=== PATIENT | female | born 1935 | race Caucasian/White ===

== ENCOUNTER 2019-11-11 20:22 | Inpatient (IN) | payer MEDICARE, OTHER ==
[2019-11-11] VITALS: BP 108/71
[~2019-11-11] VITALS: Ht 152.4 cm; Wt 52.7 kg
[2019-11-11 20:00] VITALS: BP 113/75
[2019-11-11] MEDS ORDERED: IV NORMAL SALINE 500 ML BAG IV ONE (20:30)
--- NOTE | 2019-11-11 20:40 | NUR ---
Patient BIB RA[facility]. c/o gen weakness and blood in urine x2-3 days. Patient able to speak in some complete sentences in Senegalese. Able to move x4 extremities. Device noted on LUE. no redness / swelling noted around the site. Breathing even and unlabored. no cough or SOB noted. Patient able to respond to name and painful stimuli.
[2019-11-11 21:07] LABS: CREATININE 0.8 mg/dL (0.6-1.3); POTASSIUM 3.5 mmol/L (3.5-5.1)
[2019-11-11 21:08] LABS: BASOPHILS # (AUTO) 0.1 K/uL (0.0-8.0); WHITE BLOOD COUNT (AUTO) 8.8 K/uL (3.8-11.8)
[2019-11-11 21:09] LABS: BASOPHILS % (AUTO) 0.8 % (0.0-2.0); EOSINOPHILS % (AUTO) 0.2 % (0.0-7.0); LYMPHOCYTES % (AUTO) 22.5 % (20.5-51.5); MEAN CORPUSCULAR HGB CONC 31 g/dL (32.3-35.6); MEAN CORPUSCULAR VOLUME 68.4 fL (75.5-95.3); MONOCYTES % (AUTO) 11.4 % (0.0-11.0); NEUTROPHILS # (AUTO) 5.7 K/uL (1.8-8.9); NEUTROPHILS % (AUTO) 65.1 % (38.5-71.5); PLATELET COUNT (AUTO) 377 K/uL (179-408); RED BLOOD CELL COUNT(AUTO) 2.52 MIL/uL (3.63-4.92)
[2019-11-11 21:11] LABS: HEMOGLOBIN 5.3 g/dL (10.9-14.3)
[2019-11-11 21:12] LABS: HEMATOCRIT 17.3 % (31.2-41.9)
[2019-11-11 21:13] LABS: BILIRUBIN,DIRECT 0.1 mg/dL (0.0-0.2); BILIRUBIN,TOTAL 0.3 mg/dL (0.2-1.0)
--- NOTE | 2019-11-11 21:26 | NUR ---
Unable to obtain medication list taking at home at this time due to patient's condition. Patient son Josh will bring meds list sometime huma.
--- NOTE | 2019-11-11 21:36 | NUR ---
Yanci reyes in ED - 11/11/19 at 2145 by RICHIE Unable to obtain medication list taking at home at this time due to patient's condition. Patient quentin Moreno .
--- NOTE | 2019-11-11 21:40 | NUR ---
Dr Nuñez spoke with Dr Kaufman consulting psychiatrist for [facility] for admission.
[2019-11-11 21:54] LABS: BAND % (MANUAL) 1 % (0-10); LYMPHOCYTES % (MANUAL) 18 % (20-40); MONOCYTES % (MANUAL) 12 % (2-10); NEUTROPHILS % (MANUAL) 69 % (42-75)
[2019-11-11 22:01] LABS: *BILIRUBIN,URIN NEGATIVE (NEGATIVE); *BLOOD, URINE NEGATIVE (NEGATIVE); *CLARITY,URINE SLIGHTLY CLOUDY (CLEAR); *KETONES,URINE NEGATIVE (NEGATIVE); LEUKOCYTE ESTERASE ,URINE TRACE (NEGATIVE); NITRITE, URINE NEGATIVE (NEGATIVE); PH,URINE 5.5 (5.0-8.0); UGLUCOSE NEGATIVE (NEGATIVE)
[2019-11-11 22:13] LABS: *COLOR,URINE DARK YELLOW (YELLOW)
[2019-11-11 22:16] LABS: BACTERIA,URINE MANY /HPF (NONE SEEN); MUCUS,URINE MANY /LPF (0-FEW); SQUAMOUS EPITHELIAL CELL,UR MODERATE /HPF (NONE SEEN)
--- NOTE | 2019-11-11 22:38 | NUR ---
Patient's son(Josh) came with medication list. Placed list in [employer].
--- NOTE | 2019-11-11 22:40 | NUR ---
Josh Muir (SON) at bedside stating he is the DPOA, requested copy of documents. Per son, will bring a copy in the am
[2019-11-11] MEDS ORDERED: ASCO500C18 PO (22:45)
[2019-11-11] MEDS ORDERED: ZINC1CAP2 PO (22:45)
[2019-11-11] MEDS ORDERED: AMIT10TA6 PO (22:45)
[2019-11-11] MEDS ORDERED: METF-442 PO (22:45)
[2019-11-11] MEDS ORDERED: CHOL-9 PO (22:45)
[2019-11-11] MEDS ORDERED: MECL-159 PO (22:45)
[2019-11-11] MEDS ORDERED: FERR324T PO (22:45)
[2019-11-11] MEDS ORDERED: SERT100T PO (22:45)
[2019-11-11] MEDS ORDERED: TRAM50TA2 PO (22:45)
[2019-11-11] MEDS ORDERED: OMEP20CA15 PO (22:45)
[2019-11-11] MEDS ORDERED: MELA5TAB PO (22:45)
[2019-11-11] MEDS ORDERED: METO-357 PO (22:45)
[2019-11-11] MEDS ORDERED: TRAMADOL HCL 50 MG TABLET PO PRN (23:00)
[2019-11-11] MEDS ORDERED: hydrALAZINE HCL 25 MG TABLET PO PRN (23:00)
[2019-11-11] MEDS ORDERED: MORPHINE SULFATE 2 MG/1 ML DISP.SYRIN IV PRN (23:00)
[2019-11-11] MEDS ORDERED: MAGNESIUM HYDROXIDE 30 ML LIQUID UDC PO PRN (23:00)
[2019-11-11] MEDS ORDERED: ONDANSETRON 4 MG/2 ML VIAL IV PRN (23:00)
[2019-11-11] MEDS ORDERED: ALBUTEROL SULFATE 2.5 MG/3 ML NEBU NEB PRN (23:00)
[2019-11-11] MEDS ORDERED: ACETAMINOPHEN 325 MG TABLET PO PRN (23:00)
[2019-11-11 23:08] LABS: IRON, SERUM 5 ug/dL (50-175)
[2019-11-11 23:30] VITALS: BP 111/51
[2019-11-11] MEDS ORDERED: TEMAZEPAM 7.5 MG CAPSULE PO PRN (23:45)
[2019-11-11] MEDS: CHOLECALCIFEROL 1,000 UNIT TABLET PO SCH (23:45)
--- NOTE | 2019-11-11 23:45 | NUR ---
Received pt awake, alert to self only. Pt on RA with O2 sats up to 94%. Tele placed and noted to be SR with HR 70s. Pt denies pain, dizziness or discomfort. Pt turned and repositioned. Full assessment completed. VSS, afebrile. Call light within reach. Safety precautions implemented. Will continue to monitor.
[2019-11-12] VITALS (17 sets, daily range): BP systolic 96–129; BP diastolic 41–75
[2019-11-12] MEDS ORDERED: DEXTROSE 50% 50 ML DISP.SYRIN IV PRN (01:15)
[2019-11-12] MEDS: MELATONIN 3 MG TABLET PO SCH ×2 (01:45→21:07)
[2019-11-12] MEDS: PANTOPRAZOLE SODIUM 40 MG TABLET.DR PO SCH (06:16)
--- NOTE | 2019-11-12 07:30 | NUR ---
Received patient in bed, awake, AOx1 to self. No signs of distress seen at this time. Rt. AC HL in place and flushed. Safety and fall prevention in place. Call light in reach, bed in low and locked position. All needs met at this time. Will continue to monitor.
[2019-11-12] MEDS: BLOOD SUGAR DIAGNOSTIC 1 EACH STRIP VI SCH ×4 (07:46→21:05)
[2019-11-12] MEDS: FUROSEMIDE 20 MG/2 ML VIAL IV SCH (08:58)
[2019-11-12] MEDS: SERTRALINE HCL 100 MG TABLET PO SCH (08:58)
[2019-11-12] MEDS: ZINC SULFATE 220 MG CAPSULE PO SCH (08:58)
[2019-11-12] MEDS: FERROUS GLUCONATE 324 MG TABLET PO SCH (08:58)
[2019-11-12] MEDS: INSULIN REGULAR, HUMAN 300 UNIT/3 ML VIAL SQ PRN ×3 (09:07→21:06)
[2019-11-12 11:38] LABS: BASOPHILS % (AUTO) 0.2 % (0.0-2.0); EOSINOPHILS % (AUTO) 0.1 % (0.0-7.0); HEMATOCRIT 25.2 % (31.2-41.9); HEMOGLOBIN 8.2 g/dL (10.9-14.3); LYMPHOCYTES # (AUTO) 1.3 K/uL (20.0-40.0); LYMPHOCYTES % (AUTO) 13.9 % (20.5-51.5); MEAN CORPUSCULAR HEMOGLOBIN 23.8 uug (24.7-32.8); MEAN CORPUSCULAR HGB CONC 32 g/dL (32.3-35.6); MEAN CORPUSCULAR VOLUME 73.6 fL (75.5-95.3); MONOCYTES # (AUTO) 0.9 K/uL (2.0-10.0); MONOCYTES % (AUTO) 10.1 % (0.0-11.0); NEUTROPHILS % (AUTO) 75.7 % (38.5-71.5); PLATELET COUNT (AUTO) 339 K/uL (179-408); RED BLOOD CELL COUNT(AUTO) 3.43 MIL/uL (3.63-4.92); WHITE BLOOD COUNT (AUTO) 9.3 K/uL (3.8-11.8)
[2019-11-12 11:48] LABS: CREATININE 0.7 mg/dL (0.6-1.3); MAGNESIUM 1.7 mg/dL (1.8-2.4); PHOSPHOROUS 2.6 mg/dL (2.5-4.9); POTASSIUM 3.1 mmol/L (3.5-5.1); TOTAL PROTEIN, SERUM 5.9 g/dL (6.4-8.2)
[2019-11-12 11:58] LABS: THYROID STIMULATING HORMONE 3.78 mIU/mL (0.358-3.740)
--- NOTE | 2019-11-12 12:30 | NUR ---
Md Dr. Kaufman notified of change in site monitor rythm to Afib at hr 92 and UA results. No ordered given.
[2019-11-12 13:10] LABS: BAND % (MANUAL) 1 % (0-10); LYMPHOCYTES % (MANUAL) 14 % (20-40); MONOCYTES % (MANUAL) 10 % (2-10); NEUTROPHILS % (MANUAL) 75 % (42-75)
[2019-11-12] MEDS: CEFTRIAXONE 1 G in IV DEXTROSE 5% 50 ML IV SCH (18:00)
--- NOTE | 2019-11-12 18:00 | NUR ---
Dr. Hansen came to see patient. He is aware that the son Josh wants to speak to him. Dr. Hansen stated will call him.
[2019-11-12] MEDS ORDERED: POTASSIUM CHLORIDE 20 MEQ TAB.PRT.SR PO ONE (18:15)
[2019-11-12] MEDS ORDERED: MAGNESIUM OXIDE 400 MG TABLET PO ONE (18:15)
--- NOTE | 2019-11-12 18:54 | NUR ---
Rt. AC iv is painful. tried IV placement but unable to get IV in place. ABX on hold until able to get IV in place. Will notify ambulance paramedic.
--- NOTE | 2019-11-12 18:56 | NUR ---
Patient in bed, awake, AOx1 to self. No signs of distress seen at this time. Safety and fall prevention in place. Call light in reach, bed in low and locked position. All needs met at this time. Will report to oncoming nurse.
--- NOTE | 2019-11-12 19:30 | NUR ---
RECEIVED PT AWAKE, ALERT AND ORIENTEDX2. EGYPTIAN SPEAKING. PT IN NO ACUTE RESPIRATORY DISTRESS. SAFETY AND COMFORT PROVIDED. WILL CONTIN UE TO MONITOR.
[2019-11-12] MEDS: DOCUSATE SODIUM 100 MG CAPSULE PO SCH (21:06)
[2019-11-12] MEDS: AMITRIPTYLINE HCL 10 MG TABLET PO SCH (21:06)
[2019-11-12] MEDS: CHOLECALCIFEROL 1,000 UNIT TABLET PO SCH (21:07)
[2019-11-13] VITALS (7 sets, daily range): BP systolic 103–138; BP diastolic 58–76
[2019-11-13] MEDS: PANTOPRAZOLE SODIUM 40 MG TABLET.DR PO SCH (06:14)
--- NOTE | 2019-11-13 06:32 | NUR ---
PT SLEPT INTERMITTENTLY. PT IN NO ACUTE DISTRESS. IV INTACT. PRESCRIBED MEDICATION GIVEN AND PT TOLERATED IT WELL. PT GIVEN TYLENOL AT 2107 H FOR PAIN. PT TOLERATED IT WELL. PT GIVEN MOM AT 0136 AND PRUNE JUICE TO PROMOTE BOWEL MOVEMENT. SAFETY AND COMFORT PROVIDED. ALL NEEDS ARE MET.WILL ENDORSE TO INCOMING NURSE FOR CONTINUITY OF CARE.
[2019-11-13] MEDS: BLOOD SUGAR DIAGNOSTIC 1 EACH STRIP VI SCH ×4 (06:38→20:33)
--- NOTE | 2019-11-13 07:00 | NUR ---
CALLED SON CHETAN FOR UPDATE REGARDING THE RESULT OF COVID TEST FOR HER MOM. GOT INFORMED CONSENT ALSO FOR CT ABDOMEN AND PELVIS W/ CONTRAST WITH ANOTHER RN. WILL ENDORSE TO INCOMING NURSE.
[2019-11-13] MEDS ORDERED: SWABABLE VALVE TRANSFER SET EA MC ONE (07:17)
[2019-11-13] MEDS ORDERED: IV NORMAL SALINE 250 ML IV ONE (07:18)
[2019-11-13] MEDS ORDERED: IOHEXOL 300MG/ML 100 ML INFUS..BTL ONE (07:18)
[2019-11-13] MEDS: FUROSEMIDE 20 MG/2 ML VIAL IV SCH (08:37)
[2019-11-13] MEDS: ZINC SULFATE 220 MG CAPSULE PO SCH (08:37)
[2019-11-13] MEDS: SERTRALINE HCL 100 MG TABLET PO SCH (08:38)
[2019-11-13] MEDS: FERROUS GLUCONATE 324 MG TABLET PO SCH (08:38)
[2019-11-13 11:47] LABS: BASOPHILS % (AUTO) 0.5 % (0.0-2.0); EOSINOPHILS # (AUTO) 0.1 K/uL (0.0-0.7); EOSINOPHILS % (AUTO) 0.7 % (0.0-7.0); HEMATOCRIT 25.9 % (31.2-41.9); HEMOGLOBIN 7.9 g/dL (10.9-14.3); LYMPHOCYTES # (AUTO) 1.4 K/uL (20.0-40.0); LYMPHOCYTES % (AUTO) 19.8 % (20.5-51.5); MEAN CORPUSCULAR HEMOGLOBIN 22.7 uug (24.7-32.8); MEAN CORPUSCULAR HGB CONC 31 g/dL (32.3-35.6); MEAN CORPUSCULAR VOLUME 73.8 fL (75.5-95.3); MONOCYTES # (AUTO) 0.5 K/uL (2.0-10.0); PLATELET COUNT (AUTO) 346 K/uL (179-408)
[2019-11-13 12:04] LABS: CREATININE 0.6 mg/dL (0.6-1.3); MAGNESIUM 1.6 mg/dL (1.8-2.4); PHOSPHOROUS 2.9 mg/dL (2.5-4.9); POTASSIUM 3.5 mmol/L (3.5-5.1)
[2019-11-13 12:17] LABS: LYMPHOCYTES % (MANUAL) 16 % (20-40); NEUTROPHILS % (MANUAL) 78 % (42-75)
[2019-11-13 12:18] LABS: MONOCYTES % (MANUAL) 6 % (2-10)
[2019-11-13] MEDS: INSULIN REGULAR, HUMAN 300 UNIT/3 ML VIAL SQ PRN ×3 (12:25→20:36)
[2019-11-13] MEDS ORDERED: MAGNESIUM SULFATE/D5W 100 ML IV SCH (12:30)
[2019-11-13] MEDS ORDERED: POTASSIUM CHLORIDE 20 MEQ TAB.PRT.SR PO ONE (12:30)
--- NOTE | 2019-11-13 12:30 | NUR ---
took over care from am nurse, pt resting in bed, speaks Azeri and some Paraguayan, denies of pain, on / 02, no dyspnea noted, head of bed elevated, safety measures maintained, call light within reach
--- NOTE | 2019-11-13 15:00 | NUR ---
pt removed tele pads and refused to have it replaced, mad when explained to her in Greek, oriented to self only
[2019-11-13] MEDS: CEFTRIAXONE 1 G in IV DEXTROSE 5% 50 ML IV SCH (17:20)
--- NOTE | 2019-11-13 17:46 | NUR ---
resting in bed, no distress noted, all needs attended and met, fed with meals- aspiration precautions observed, safety measures maintained, bed alarm on with rails x 3 up, call light within reach, repositioned q 2h with heels off loaded with pillows.
--- NOTE | 2019-11-13 19:00 | NUR ---
Patient in bed awake. Patient has no s/s of acute distress or pain. Patient is on 1L NC setting at 98%. Patient is afebrile. Patient's vitals are stable. Safety measures in place. Bed low and locked position. Call lights within reach will continue with the plan of care.
[2019-11-13] MEDS: AMITRIPTYLINE HCL 10 MG TABLET PO SCH (20:22)
[2019-11-13] MEDS: DOCUSATE SODIUM 100 MG CAPSULE PO SCH (20:22)
[2019-11-13] MEDS: MELATONIN 3 MG TABLET PO SCH (20:22)
[2019-11-13] MEDS: CHOLECALCIFEROL 1,000 UNIT TABLET PO SCH (20:22)
[2019-11-14] VITALS (9 sets, daily range): BP systolic 119–167; BP diastolic 63–91
[2019-11-14 00:47] LABS: *OCCULT BLOOD STOOL POSITIVE (NEGATIVE)
[2019-11-14 06:24] LABS: BILIRUBIN,TOTAL 0.6 mg/dL (0.2-1.0); CREATININE 0.6 mg/dL (0.6-1.3); MAGNESIUM 1.8 mg/dL (1.8-2.4); PHOSPHOROUS 2.6 mg/dL (2.5-4.9); POTASSIUM 3.5 mmol/L (3.5-5.1); TOTAL PROTEIN, SERUM 5.4 g/dL (6.4-8.2)
[2019-11-14] MEDS: PANTOPRAZOLE SODIUM 40 MG TABLET.DR PO SCH (06:29)
[2019-11-14 06:31] LABS: BASOPHILS % (AUTO) 0.2 % (0.0-2.0); LYMPHOCYTES # (AUTO) 2.1 K/uL (20.0-40.0); MEAN CORPUSCULAR HEMOGLOBIN 23.1 uug (24.7-32.8)
[2019-11-14] MEDS: BLOOD SUGAR DIAGNOSTIC 1 EACH STRIP VI SCH ×4 (06:41→20:28)
[2019-11-14 06:46] LABS: EOSINOPHILS % (AUTO) 0.2 % (0.0-7.0); LYMPHOCYTES % (AUTO) 23.5 % (20.5-51.5); MEAN CORPUSCULAR HGB CONC 32 g/dL (32.3-35.6); MEAN CORPUSCULAR VOLUME 73.1 fL (75.5-95.3); MONOCYTES # (AUTO) 0.8 K/uL (2.0-10.0); MONOCYTES % (AUTO) 8.7 % (0.0-11.0); NEUTROPHILS # (AUTO) 5.9 K/uL (1.8-8.9); NEUTROPHILS % (AUTO) 67.4 % (38.5-71.5); PLATELET COUNT (AUTO) 321 K/uL (179-408); RED BLOOD CELL COUNT(AUTO) 3.15 MIL/uL (3.63-4.92)
[2019-11-14 06:58] LABS: HEMOGLOBIN 7.3 g/dL (10.9-14.3)
--- NOTE | 2019-11-14 06:59 | NUR ---
Telephone call from lab/Ar, reported Hgb of 7.3 and Hct of 23. Stool for occult blood also positive. Informed Dr. Kaufman, and order to give patient 1 unit PRBC.
[2019-11-14 07:02] LABS: WHITE BLOOD COUNT (AUTO) 8.8 K/uL (3.8-11.8)
--- NOTE | 2019-11-14 07:10 | NUR ---
Patient awake, no s/s of acute distress or pain. Patient on 1L NC, no dyspnea noted. Patient's IV intact. Patient's vitals stable. Patient is afebrile. Incontinence care provided. Needs attended. Head of the bed elevated. Aspiration precaution maintained. Repositioned Q2H. Safety measures in place. Bed alarm on, low and locked position with side rails x3 up. Will endorse to the oncoming nurse accordingly.
[2019-11-14] MEDS: FUROSEMIDE 20 MG/2 ML VIAL IV SCH (08:45)
[2019-11-14] MEDS: ZINC SULFATE 220 MG CAPSULE PO SCH (08:45)
[2019-11-14] MEDS: SERTRALINE HCL 100 MG TABLET PO SCH (08:45)
[2019-11-14] MEDS: FERROUS GLUCONATE 324 MG TABLET PO SCH (08:45)
[2019-11-14] MEDS: INSULIN REGULAR, HUMAN 300 UNIT/3 ML VIAL SQ PRN ×3 (08:59→20:30)
[2019-11-14 09:44] LABS: EOSINOPHILS % (MANUAL) 3 % (0-8); LYMPHOCYTES % (MANUAL) 20 % (20-40); MONOCYTES % (MANUAL) 9 % (2-10); NEUTROPHILS % (MANUAL) 68 % (42-75)
--- NOTE | 2019-11-14 10:30 | NUR ---
Unable to grape picker blood because pt. does not have wrist band with sticker for lab. rotary driller helper called lab, I called lab. They stated to wait until vocational education professional comes to draw blood and gets new wrist band. Will have to wait to grape picker blood until wrist band available for pt.
[2019-11-14] MEDS: DILTIAZEM HCL CD 120 MG CAP.SR.24H PO SCH (13:48)
[2019-11-14] MEDS: PIPERACILLIN SODIUM/TAZOBACTAM 3.375 G in IV DEXTROSE 5% 50 ML IV SCH ×2 (17:37→21:38)
--- NOTE | 2019-11-14 20:00 | NUR ---
RECEIVED PATIENT AWAKE IN BED. A/O TO SELF. BRITISH SPEAKING. CONFUSED. NO S/S OF ANY PAIN OR DISCOMFORT. NO RESP. DISTRESS NOTED. H/L INTACT AND PATENT. VS WNL. BED ALARM ON. CALL LIGHT IN REACH. ALL NEEDS ATTENDED. WILL CONTINUE TO MONITOR AND ASSESS.
[2019-11-14] MEDS: MELATONIN 3 MG TABLET PO SCH (20:28)
[2019-11-14] MEDS: DOCUSATE SODIUM 100 MG CAPSULE PO SCH (20:28)
[2019-11-14] MEDS: CHOLECALCIFEROL 1,000 UNIT TABLET PO SCH (20:28)
[2019-11-14] MEDS: AMITRIPTYLINE HCL 10 MG TABLET PO SCH (20:28)
[2019-11-15 04:40] VITALS: BP 137/78
[2019-11-15] MEDS: PIPERACILLIN SODIUM/TAZOBACTAM 3.375 G in IV DEXTROSE 5% 50 ML IV SCH ×3 (05:35→21:18)
[2019-11-15] MEDS: PANTOPRAZOLE SODIUM 40 MG TABLET.DR PO SCH (06:06)
[2019-11-15] MEDS: BLOOD SUGAR DIAGNOSTIC 1 EACH STRIP VI SCH ×4 (06:31→21:50)
--- NOTE | 2019-11-15 07:30 | NUR ---
patient on bed, resting well. no distress noted
--- NOTE | 2019-11-15 08:00 | NUR ---
Assisted with breakfast, tolerated well.
[2019-11-15] MEDS: INSULIN REGULAR, HUMAN 300 UNIT/3 ML VIAL SQ PRN ×4 (08:04→22:03)
[2019-11-15] MEDS: DILTIAZEM HCL CD 120 MG CAP.SR.24H PO SCH (08:31)
[2019-11-15] MEDS: SERTRALINE HCL 100 MG TABLET PO SCH (08:31)
[2019-11-15] MEDS: ZINC SULFATE 220 MG CAPSULE PO SCH (08:31)
[2019-11-15] MEDS: FUROSEMIDE 20 MG/2 ML VIAL IV SCH (08:32)
[2019-11-15] MEDS: FERROUS GLUCONATE 324 MG TABLET PO SCH (08:33)
--- NOTE | 2019-11-15 10:28 | NUR ---
son, Dk called. aware patient status as requested. spoke to patient , able to speak to patient well.
[2019-11-15 11:30] VITALS: BP 122/59
--- NOTE | 2019-11-15 14:00 | NUR ---
resting well, no distress noted
[2019-11-15 15:52] LABS: BASOPHILS % (AUTO) 0.4 % (0.0-2.0); EOSINOPHILS % (AUTO) 0.4 % (0.0-7.0); HEMATOCRIT 26.9 % (31.2-41.9); HEMOGLOBIN 8.5 g/dL (10.9-14.3); LYMPHOCYTES # (AUTO) 1.4 K/uL (20.0-40.0); MEAN CORPUSCULAR HEMOGLOBIN 23.9 uug (24.7-32.8); MEAN CORPUSCULAR HGB CONC 32 g/dL (32.3-35.6); MEAN CORPUSCULAR VOLUME 75.5 fL (75.5-95.3); MONOCYTES # (AUTO) 0.8 K/uL (2.0-10.0); MONOCYTES % (AUTO) 10.7 % (0.0-11.0); NEUTROPHILS # (AUTO) 4.9 K/uL (1.8-8.9); NEUTROPHILS % (AUTO) 68.5 % (38.5-71.5); PLATELET COUNT (AUTO) 299 K/uL (179-408); RED BLOOD CELL COUNT(AUTO) 3.56 MIL/uL (3.63-4.92); WHITE BLOOD COUNT (AUTO) 7.2 K/uL (3.8-11.8)
[2019-11-15 16:00] VITALS: BP 131/69
[2019-11-15 16:04] LABS: CREATININE 0.6 mg/dL (0.6-1.3); MAGNESIUM 1.7 mg/dL (1.8-2.4); PHOSPHOROUS 2.7 mg/dL (2.5-4.9); POTASSIUM 3.2 mmol/L (3.5-5.1)
[2019-11-15] MEDS ORDERED: POTASSIUM CHLORIDE 20 MEQ TAB.PRT.SR PO ONE (16:45)
[2019-11-15] MEDS ORDERED: MAGNESIUM SULFATE/D5W 100 ML IV SCH ×2 (16:45→22:30)
--- NOTE | 2019-11-15 18:00 | NUR ---
tearful ,emotional support provided, wants to go home. for thoracentesis in am.
[2019-11-15] MEDS: METFORMIN HCL 500 MG TABLET PO SCH (18:48)
--- NOTE | 2019-11-15 20:52 | NUR ---
consent obtained for ultra sund cuided thoracentesis from son yuliana valdovinos due to patients mental status. telephone consent obtained and witness by RN and second RN Laurita. consent placed in chart. Addendum: 11/15/19 at 2052 by MIGUEL BOUDREAUX RN corrections: ultra sounds guided thoracentesis
[2019-11-15 21:04] VITALS: BP 116/60
[2019-11-15] MEDS: DOCUSATE SODIUM 100 MG CAPSULE PO SCH (21:17)
[2019-11-15] MEDS: MELATONIN 3 MG TABLET PO SCH (21:17)
[2019-11-15] MEDS: CHOLECALCIFEROL 1,000 UNIT TABLET PO SCH (21:17)
[2019-11-15] MEDS: AMITRIPTYLINE HCL 10 MG TABLET PO SCH (21:18)
[2019-11-16 04:17] VITALS: BP 120/71
[2019-11-16] MEDS: PIPERACILLIN SODIUM/TAZOBACTAM 3.375 G in IV DEXTROSE 5% 50 ML IV SCH ×3 (05:05→21:37)
[2019-11-16] MEDS: PANTOPRAZOLE SODIUM 40 MG TABLET.DR PO SCH (06:01)
[2019-11-16 06:12] LABS: BASOPHILS % (AUTO) 0.2 % (0.0-2.0); EOSINOPHILS # (AUTO) 0.1 K/uL (0.0-0.7); EOSINOPHILS % (AUTO) 2.1 % (0.0-7.0); HEMATOCRIT 24.6 % (31.2-41.9); HEMOGLOBIN 7.9 g/dL (10.9-14.3); LYMPHOCYTES # (AUTO) 1.9 K/uL (20.0-40.0); LYMPHOCYTES % (AUTO) 27.5 % (20.5-51.5); MEAN CORPUSCULAR HEMOGLOBIN 24.2 uug (24.7-32.8); MEAN CORPUSCULAR HGB CONC 32 g/dL (32.3-35.6); MEAN CORPUSCULAR VOLUME 75.3 fL (75.5-95.3); MONOCYTES # (AUTO) 0.7 K/uL (2.0-10.0); MONOCYTES % (AUTO) 10.2 % (0.0-11.0); NEUTROPHILS # (AUTO) 4.2 K/uL (1.8-8.9); PLATELET COUNT (AUTO) 269 K/uL (179-408); RED BLOOD CELL COUNT(AUTO) 3.26 MIL/uL (3.63-4.92)
[2019-11-16 06:21] LABS: BILIRUBIN,TOTAL 0.7 mg/dL (0.2-1.0); CREATININE 0.6 mg/dL (0.6-1.3); PHOSPHOROUS 2.7 mg/dL (2.5-4.9); POTASSIUM 3.6 mmol/L (3.5-5.1); TOTAL PROTEIN, SERUM 5.3 g/dL (6.4-8.2)
[2019-11-16] MEDS: BLOOD SUGAR DIAGNOSTIC 1 EACH STRIP VI SCH ×4 (06:31→21:05)
--- NOTE | 2019-11-16 06:51 | NUR ---
PATIENT AAOX1-2. V/S STABLE. NO S/S OF ACUTE DISTRESS. ALL MEDICATIONS ADMINISTERED AND NEEDS MET. SAFETY PRECAUTIONS IN PLACE. WILL CONTINUE TO MONITOR.
[2019-11-16 09:00] VITALS: BP 124/56
[2019-11-16] MEDS: FUROSEMIDE 20 MG/2 ML VIAL IV SCH (10:06)
[2019-11-16] MEDS: SERTRALINE HCL 100 MG TABLET PO SCH (10:17)
[2019-11-16] MEDS: DILTIAZEM HCL CD 120 MG CAP.SR.24H PO SCH (10:17)
[2019-11-16] MEDS: METFORMIN HCL 500 MG TABLET PO SCH ×2 (10:18→17:55)
[2019-11-16] MEDS: ZINC SULFATE 220 MG CAPSULE PO SCH (10:18)
[2019-11-16] MEDS: FERROUS GLUCONATE 324 MG TABLET PO SCH (10:31)
[2019-11-16] MEDS ORDERED: POTASSIUM CHLORIDE 20 MEQ TAB.PRT.SR PO ONE (11:45)
[2019-11-16 12:00] VITALS: BP 94/44
[2019-11-16] MEDS: INSULIN REGULAR, HUMAN 300 UNIT/3 ML VIAL SQ PRN ×3 (12:52→21:11)
[2019-11-16 16:00] VITALS: BP 130/54
[2019-11-16] MEDS ORDERED: FUROSEMIDE 20 MG/2 ML VIAL IV PRN (16:45)
--- NOTE | 2019-11-16 17:00 | NUR ---
Patient had thoracentesis this morning and 900cc yellow fluid removed. vss, last b/p 130/54,t--97.6
[2019-11-16] MEDS: MELATONIN 3 MG TABLET PO SCH (21:01)
[2019-11-16] MEDS: CHOLECALCIFEROL 1,000 UNIT TABLET PO SCH (21:01)
[2019-11-16] MEDS: DOCUSATE SODIUM 100 MG CAPSULE PO SCH (21:01)
[2019-11-16] MEDS: AMITRIPTYLINE HCL 10 MG TABLET PO SCH (21:01)
[2019-11-16 21:06] VITALS: BP 95/44
[2019-11-17] VITALS (13 sets, daily range): BP systolic 97–130; BP diastolic 50–84
[2019-11-17] MEDS: PANTOPRAZOLE SODIUM 40 MG TABLET.DR PO SCH (06:06)
[2019-11-17] MEDS: PIPERACILLIN SODIUM/TAZOBACTAM 3.375 G in IV DEXTROSE 5% 50 ML IV SCH ×2 (06:06→14:22)
[2019-11-17] MEDS: BLOOD SUGAR DIAGNOSTIC 1 EACH STRIP VI SCH ×4 (07:30→21:10)
--- NOTE | 2019-11-17 07:43 | NUR ---
Patient awake, no s/s of acute distress noted. AxOx1-2, Cymro speaking. Patient is on RA,, no dyspnea SOB noted. Patient's IV intact. Antibiotics administered. Patient's vitals fluctuated but remained stable. Patient pulled IV out, new IV access on RFA 20G, intact. Infused 1 unit of blood, no adverse reactions noted, patient remained stable.Patient is afebrile. Incontinence care provided. Needs attended. Head of the bed elevated. Aspiration precaution maintained, crushed medication and administered with pudding. Repositioned. Safety measures in place. Bed alarm on, low and locked position with side rails x2 up. Tearful ,emotional refusing any care in the morning.Will continue to monitor. Will endorse to the oncoming nurse accordingly.
[2019-11-17] MEDS: METFORMIN HCL 500 MG TABLET PO SCH ×2 (08:00→18:48)
--- NOTE | 2019-11-17 08:00 | NUR ---
VSS 97.8-95-18 BP 116/83. SATS 95% ON ROOM AIR. PATIENT IS ALERT AND ORIENTED X 3 WITH APPROPRIATE RESPONSES. SKIN WARM, DRY, AND INTACT THROUGHUT WITH IV VIA LEFT AC#20 WITH ZOSYN INFUSING WITHOUT DIFFICULTY. NO SKIN BREAKDOWNS. ABDOMEN SOFTLY ROUNDED WITH +BOWEL SOUNDS. NO NAUSEA OR EMESIS. NO RUEDA CATH. PATIENT IS INCONTINENT OF A RED/BLOODY DRAINAGE FROM RECTUM AND URINE. LUNGS CTA TO BUL ANTERIORLY. PATIENT REFUSED ACCUCHECK AT 07:30 BUT ACCEPTS BREAKFAST WITHOUT DIFFICULTY. NURSE HOLD GLUCOPHAGE PATIENT WAS REFUSING ACCUCHECK. NO SIGNS OF ACUTE CARDIAC/RESPIRATORY DISTRESS OR SUPPRESSION.
[2019-11-17] MEDS: FUROSEMIDE 20 MG/2 ML VIAL IV SCH (08:52)
[2019-11-17] MEDS: ZINC SULFATE 220 MG CAPSULE PO SCH (08:52)
[2019-11-17] MEDS: FERROUS GLUCONATE 324 MG TABLET PO SCH (08:53)
[2019-11-17] MEDS: DILTIAZEM HCL CD 120 MG CAP.SR.24H PO SCH (08:55)
[2019-11-17] MEDS: SERTRALINE HCL 100 MG TABLET PO SCH (08:57)
[2019-11-17] MEDS ORDERED: DILTIAZEM HCL 60 MG TABLET PO SCH (09:00)
[2019-11-17 09:54] LABS: BASOPHILS % (AUTO) 0.6 % (0.0-2.0); EOSINOPHILS # (AUTO) 0.1 K/uL (0.0-0.7); EOSINOPHILS % (AUTO) 1.9 % (0.0-7.0); HEMOGLOBIN 9.4 g/dL (10.9-14.3); LYMPHOCYTES # (AUTO) 1.7 K/uL (20.0-40.0); LYMPHOCYTES % (AUTO) 22.1 % (20.5-51.5); MEAN CORPUSCULAR HEMOGLOBIN 24.9 uug (24.7-32.8); MEAN CORPUSCULAR HGB CONC 32 g/dL (32.3-35.6); MEAN CORPUSCULAR VOLUME 76.6 fL (75.5-95.3); MONOCYTES # (AUTO) 0.7 K/uL (2.0-10.0); MONOCYTES % (AUTO) 8.5 % (0.0-11.0); NEUTROPHILS # (AUTO) 5.2 K/uL (1.8-8.9); NEUTROPHILS % (AUTO) 66.9 % (38.5-71.5); PLATELET COUNT (AUTO) 272 K/uL (179-408); RED BLOOD CELL COUNT(AUTO) 3.78 MIL/uL (3.63-4.92); WHITE BLOOD COUNT (AUTO) 7.8 K/uL (3.8-11.8)
--- NOTE | 2019-11-17 12:00 | NUR ---
VSS 98.8-84-20 BP 116/65. SATS 94% ON ROOM AIR. FSXOGYAQI=237 MG/DL--COVERED WITH 4 UNITS REGULAR INSULIN. APPETITE GOOD FOR >80% LUNCH. PATIENT APPEARS TO HAVE A BRIGHTER, HAPPIER AFFECT THIS AFTERNOON AND IS MORE COMPLIANT TO NURSE INTERVENTIONS. MAKES GOOD EYE TO EYE CONTACT AND SPEAKS IN KYRGYZ MORE OFTEN. STAB;E/
[2019-11-17] MEDS: INSULIN REGULAR, HUMAN 300 UNIT/3 ML VIAL SQ PRN ×3 (12:28→21:11)
--- NOTE | 2019-11-17 16:00 | NUR ---
VSS 98.4-94-17 BP 97/67. SATS 8% ON ROOM AIR. PATIENT STABLE AND SHOWS NO SIGNS OF ACUTE DISTRESS. INC OF STOOL WITH BLOOD. TODAYS HGB/HCT=9.4/29.0.
--- NOTE | 2019-11-17 18:00 | NUR ---
DINNER EQMCASIBX=138 MG/DL--COVERED WITH 2 UNITS REGULAR INSULIN PER SSC. NO SIGNS OF ACUTE HYPO-HYPERGLYCEMIAS. PATIENT REMAINS PAINN FREE. DID GET 1800 DOSE OF GLUCOPHAGE 500 MG PO AND ATE 90% OF DINNER WITHOUT DIFFICULTY. STABLE.
--- NOTE | 2019-11-17 20:00 | NUR ---
RECEIVED PATIENT AWAKE IN BED. A/O X2 , YORUBA SPEAKING ONLY. CONFUSED AT TIMES. VS WNL. DENIES PAIN OR DISCOMFORT. NO RESP. DISTRESS NOTED. H/L INTACT AND PATENT NOTED TO RIGHT FA. BED ALARM ON. CALL LIGHT IN REACH. ALL NEEDS ATTENDED. WILL CONTINUE TO MONITOR AND ASSESS.
[2019-11-17] MEDS: DOCUSATE SODIUM 100 MG CAPSULE PO SCH (21:00)
[2019-11-17] MEDS: CHOLECALCIFEROL 1,000 UNIT TABLET PO SCH (21:10)
[2019-11-17] MEDS: MELATONIN 3 MG TABLET PO SCH (21:10)
[2019-11-17] MEDS: AMITRIPTYLINE HCL 10 MG TABLET PO SCH (21:10)
[2019-11-18 04:02] VITALS: BP 119/62
[2019-11-18] MEDS: PANTOPRAZOLE SODIUM 40 MG TABLET.DR PO SCH (06:05)
--- NOTE | 2019-11-18 06:28 | NUR ---
PATIENT ASLEEP IN BED. EASILY AROUSABLE. EASILY AGITATED WITH CARE THIS MORNING. PATIENT PULLED OUT IV HEPLOCK. PATIENT REFUSING FOR REINSERTION AT THIS TIME. NOTIFIED MICROBIOLOGY LAB ASSISTANT. BED ALARM ON. CALL LIGHT IN REACH. ALL NEEDS ATTENDED. WILL CONTINUE TO MONITOR AND ASSESS.
[2019-11-18] MEDS: BLOOD SUGAR DIAGNOSTIC 1 EACH STRIP VI SCH ×3 (06:32→17:01)
[2019-11-18] MEDS: SERTRALINE HCL 100 MG TABLET PO SCH (08:15)
[2019-11-18] MEDS: METFORMIN HCL 500 MG TABLET PO SCH (08:15)
[2019-11-18] MEDS: FERROUS GLUCONATE 324 MG TABLET PO SCH (08:16)
[2019-11-18] MEDS: DILTIAZEM HCL CD 120 MG CAP.SR.24H PO SCH (08:18)
[2019-11-18] MEDS: ZINC SULFATE 220 MG CAPSULE PO SCH (08:18)
--- NOTE | 2019-11-18 09:35 | NUR ---
PATIENT CALM AND COMFORTABLE WITH NO SIGNS OF DISTRESS; PATIENT WILL CONTINUE TO BE MONITORED.
[2019-11-18 11:34] VITALS: BP 114/60
[2019-11-18] MEDS: INSULIN REGULAR, HUMAN 300 UNIT/3 ML VIAL SQ PRN (11:58)
[2019-11-18 16:00] VITALS: BP 120/57
--- NOTE | 2019-11-18 18:27 | NUR ---
PATIENT DISCHARGED HOME WITH AMBULANCE IN STABLE CONDITION ; PAT[facility] PLAC[facility] AND WILL CONTINUE CARE AT HOME. SON NOTIFIED. PATIENT BASELINE MENTAL STATUS.
== END 2019-11-18 18:30 | disposition hospice, home (50) | DRG 871 ==
LOC: ER 20:24 → TELE 22:37 → TELE3 11-13 08:09 → MEDSURG3 11-13 15:00
PROVIDERS: ADMIT Internal Medicine; ATTEND Internal Medicine
PROC: 30233N1 Transfusion of Nonautologous Red Blood Cells into Peripheral Vein, Percutaneous Approach (ICD-10-PCS; principal; 2019-11-12)
PROC: 0W993ZZ Drainage of Right Pleural Cavity, Percutaneous Approach (ICD-10-PCS; 2019-11-16)
DX: A41.9 Sepsis, unspecified organism (principal); J69.0 Pneumonitis due to inhalation of food and vomit; E43 Unspecified severe protein-calorie malnutrition; G92 Toxic encephalopathy; I50.33 Acute on chronic diastolic (congestive) heart failure; I81 Portal vein thrombosis; C18.9 Malignant neoplasm of colon, unspecified; C78.7 Secondary malignant neoplasm of liver and intrahepatic bile duct; D68.69 Other thrombophilia; N39.0 Urinary tract infection, site not specified; R18.8 Other ascites; J91.0 Malignant pleural effusion; K92.2 Gastrointestinal hemorrhage, unspecified; D50.0 Iron deficiency anemia secondary to blood loss (chronic); Z66 Do not resuscitate; F03.90 Unspecified dementia, unspecified severity, without behavioral disturbance, psychotic disturbance, mood disturbance, and anxiety; E87.6 Hypokalemia; I48.0 Paroxysmal atrial fibrillation; R62.7 Adult failure to thrive; I25.10 Atherosclerotic heart disease of native coronary artery without angina pectoris; I11.0 Hypertensive heart disease with heart failure; R53.1 Weakness; E11.65 Type 2 diabetes mellitus with hyperglycemia; K74.60 Unspecified cirrhosis of liver; K62.89 Other specified diseases of anus and rectum; Z68.22 Body mass index [BMI] 22.0-22.9, adult; I34.0 Nonrheumatic mitral (valve) insufficiency; B96.20 Unspecified Escherichia coli [E. coli] as the cause of diseases classified elsewhere; Z79.84 Long term (current) use of oral hypoglycemic drugs; H54.61 Unqualified visual loss, right eye, normal vision left eye
CPT/HCPCS: 32555; 36415; 51702; 70030-TC; 71045; 71250; 82105; 82378; 83550; 83690; 83735; 84100; 84443; 85025; 85610; 85730; 86850; 86900; 86901; 86920; 87077; 87086; 93005; 93307; A4217; A4663; G0378; J0696; J1815; J1940; J2543; J3475; J7040; J7050; J7060; P9016-BL; P9021; Q9967; U0003-CS